=== PATIENT | male | born 1955 | race Two or more races ===

== ENCOUNTER → 2020-04-29 | Outpatient (CLI) | payer MEDICAID, OTHER ==
[~2020-04-29] MED LIST: CYAN-27 PO; Diabetic Med PO; GABA300C PO; HYDR-3240 PO; LISI2.5T PO
[2020-04-29 14:18] LABS: BASOPHILS # (AUTO) 0.06 x10^3/uL (0-0.1); BASOPHILS % (AUTO) 1 % (0-1); EOSINOPHILS # (AUTO) 0.42 x10^3/uL (0-0.4); EOSINOPHILS % (AUTO) 5 % (1-7); LYMPHOCYTES # (AUTO) 1.72 x10^3/uL (1-3.4); LYMPHOCYTES % (AUTO) 19 % (22-44); MD NO; MEAN CORPUSCULAR HEMOGLOBIN 33.5 pg (27.5-34.5); MEAN CORPUSCULAR HGB CONC 34.1 g/dL (33.2-36.2); MEAN CORPUSCULAR VOLUME 98.4 fL (81-97); MEAN PLATELET VOLUME 7.9 fL (7.4-10.4); MONOCYTES % (AUTO) 7 % (2-9); NEUTROPHILS # (AUTO) 6.45 x10^3/uL (1.8-6.8); NEUTROPHILS % (AUTO) 70 % (42-75); PLATELET COUNT 279 x10^3/uL (130-400); RED BLOOD COUNT 4.36 x10^6/uL (4.38-5.82); RED CELL DISTRIBUTION WIDTH 13.7 % (9.4-14.8)
[2020-04-29 14:25] LABS: INTERNATIONAL NORMALIZED RATIO 1.01 (0.93-1.1); PROTHROMBIN TIME 10.7 Seconds (9.6-11.5)
[2020-04-29 14:27] LABS: ALANINE AMINOTRANSFERASE 39 U/L (12-78); ALBUMIN 3.7 g/dL (3.4-5.0); ANION GAP 5 mmol/L (5-15); CALCIUM 9.4 mg/dL (8.5-10.1); CHLORIDE 105 mmol/L (98-107); CREATININE 1.31 mg/dL (0.7-1.3)
[2020-04-29 14:30] LABS: ALKALINE PHOSPHATASE 110 U/L (45-117); BILIRUBIN,TOTAL 0.8 mg/dL (0.2-1.0); TOTAL PROTEIN 7.6 g/dL (6.4-8.2)
== END | disposition home or self-care (01) ==
LOC: STAR 13:15
PROVIDERS: ATTEND Neurological Surgery
DX: Z01.818 Encounter for other preprocedural examination (principal); M48.061 Spinal stenosis, lumbar region without neurogenic claudication; M54.16 Radiculopathy, lumbar region; R94.31 Abnormal electrocardiogram [ECG] [EKG]
CPT/HCPCS: 36415; 80053; 85025; 85610; 85730; 93005

== ENCOUNTER 2020-05-07 05:28 | Observation (INO) | payer OTHER ==
[~2020-05-07] VITALS: Ht 165.1 cm; Wt 97.1 kg
[2020-05-07] MEDS ORDERED: BUPIVACAINE/PF-EPI 0.5% 1:200K ONE (06:28)
[2020-05-07] MEDS ORDERED: THROMBIN 5,000 UNIT VIAL TP ONE (06:28)
[2020-05-07] MEDS ORDERED: BACITRACIN 50,000 UNIT ONE (06:29)
[2020-05-07] MEDS ORDERED: CHLORHEXIDINE 15 ML UDC MM ONE (06:30)
[2020-05-07] MEDS ORDERED: METF500T17 PO (06:31)
[2020-05-07] MEDS ORDERED: GABA300C PO (06:31)
[2020-05-07] MEDS ORDERED: ATOR20TA37 PO (06:31)
[2020-05-07] MEDS ORDERED: LOSA25TA25 PO (06:31)
[2020-05-07] MEDS ORDERED: LACTATED RINGERS 1,000 ML IV SCH (06:32)
[2020-05-07] MEDS ORDERED: GABAPENTIN 300 MG CAPSULE PO STA (06:45)
[2020-05-07] MEDS ORDERED: GABAPENTIN 300 MG CAPSULE ONE (06:50)
[2020-05-07] MEDS ORDERED: ACETAMINOPHEN 500 MG TABLET ONE (06:50)
[2020-05-07] MEDS ORDERED: PHENYLEPHRINE 10 MG/ML ONE (06:52)
[2020-05-07] MEDS ORDERED: FENTANYL PF 250 MCG/5ML ONE ×2 (06:56→08:40)
[2020-05-07] MEDS ORDERED: MIDAZOLAM 1 MG/ML, 2ML ONE (06:56)
[2020-05-07] MEDS ORDERED: GLYCOPYRROLATE 0.2MG/1ML, 5ML ONE (06:57)
[2020-05-07] MEDS ORDERED: PROPOFOL 10 MG/ML, 20ML ONE (06:57)
[2020-05-07] MEDS ORDERED: NEOSTIGMINE 1 MG/ML, 10ML ONE (06:57)
[2020-05-07] MEDS ORDERED: ROCURONIUM 10MG/ML,5ML ONE (06:57)
[2020-05-07] MEDS ORDERED: CEFAZOLIN 1,000 MG ONE (06:57)
[2020-05-07] MEDS ORDERED: ACETAMINOPHEN 500 MG TABLET PO ONE (07:00)
[2020-05-07] MEDS ORDERED: DEXAMETHASONE 4 MG/ML, 1ML ONE ×2 (07:17)
[2020-05-07] MEDS ORDERED: ONDANSETRON 2MG/ML, 2ML ONE ×2 (07:17)
[2020-05-07] MEDS ORDERED: HYDROmorphone 1 MG/ML, 1ML INJ IVPush PRN (07:30)
[2020-05-07] MEDS ORDERED: MEPERIDINE/PF 25MG/0.5ML IVPush PRN (07:30)
[2020-05-07] MEDS ORDERED: morphine SULFATE 10 MG/ML, 1ML IVPush PRN (07:30)
[2020-05-07] MEDS ORDERED: LABETALOL 5MG/ML, 20ML IV PRN ×2 (07:30→12:30)
[2020-05-07] MEDS ORDERED: OXYcodone 5 MG/5 ML ORAL.SOL UDC PO PRN (07:30)
[2020-05-07] MEDS ORDERED: hydrALAzine 20 MG/ML, 1ML IV PRN (07:30)
[2020-05-07] MEDS ORDERED: ONDANSETRON 2MG/ML, 2ML IVPush PRN (07:30)
[2020-05-07] MEDS ORDERED: OXYcodone 5 MG/5 ML ORAL.SOL UDC ONE (10:02)
[2020-05-07] MEDS ORDERED: FENTANYL PF 100 MCG/2ML ONE (10:02)
[2020-05-07] MEDS: FENTANYL PF 100 MCG/2ML IV PRN ×2 (10:04→10:22)
[2020-05-07] MEDS ORDERED: CYCLOBENZAPRINE 10 MG TABLET ONE (10:11)
[2020-05-07] MEDS ORDERED: CYCLOBENZAPRINE 10 MG TABLET PO PRN ×2 (10:30→12:30)
[2020-05-07] MEDS ORDERED: CEFAZOLIN PMX 1GM/50ML 50 ML IVPB SCH (12:30)
[2020-05-07] MEDS ORDERED: DIPHENHYDRAMINE 50 MG/ML, 1ML IM PRN (12:30)
[2020-05-07] MEDS ORDERED: BISACODYL 10 MG SUPP PR PRN (12:30)
[2020-05-07] MEDS ORDERED: ONDANSETRON 2MG/ML, 2ML IV PRN (12:30)
[2020-05-07] MEDS ORDERED: DIPHENHYDRAMINE 25 MG CAPSULE PO PRN (12:30)
[2020-05-07] MEDS ORDERED: HYDROcodone/APAP 5/325 TABLET PO PRN (12:30)
[2020-05-07] MEDS ORDERED: MAGNESIUM HYDROXIDE 8%, 30ML UDC PO PRN (12:30)
[2020-05-07] MEDS ORDERED: morphine SULFATE 10 MG/ML, 1ML IV PRN (12:30)
[2020-05-07 14:36] VITALS: BP 120/68
[2020-05-07] MEDS: GABAPENTIN 300 MG CAPSULE PO SCH ×2 (15:40→21:31)
[2020-05-07] MEDS: CEFAZOLIN PMX 1GM/50ML 50 ML IVPB SCH ×2 (15:41→23:43)
[2020-05-07] MEDS: OXYcodone IR 5MG TABLET PO PRN ×3 (15:41→23:47)
[2020-05-07] MEDS: NS + 20MEQ KCL 1,000 ML IV SCH (15:41)
[2020-05-07 18:26] VITALS: BP 127/69
[2020-05-07] MEDS: ATORVASTATIN 20 MG TABLET PO SCH (21:31)
[2020-05-08] VITALS: BP 128/62
[2020-05-08] MEDS: NS + 20MEQ KCL 1,000 ML IV SCH ×3 (01:30→21:30)
[2020-05-08 03:34] VITALS: BP 118/61
[2020-05-08] MEDS: OXYcodone IR 5MG TABLET PO PRN ×5 (03:49→20:27)
[2020-05-08 05:56] LABS: BASOPHILS # (AUTO) 0.01 x10^3/uL (0-0.1); BASOPHILS % (AUTO) 0 % (0-1); EOSINOPHILS % (AUTO) 1 % (1-7); LYMPHOCYTES # (AUTO) 1.19 x10^3/uL (1-3.4); LYMPHOCYTES % (AUTO) 9 % (22-44); MD NO; MEAN CORPUSCULAR HEMOGLOBIN 33.4 pg (27.5-34.5); MEAN CORPUSCULAR HGB CONC 33.8 g/dL (33.2-36.2); MEAN PLATELET VOLUME 7.9 fL (7.4-10.4); MONOCYTES # (AUTO) 0.68 x10^3/uL (0.2-0.8); MONOCYTES % (AUTO) 5 % (2-9); NEUTROPHILS # (AUTO) 11.67 x10^3/uL (1.8-6.8); NEUTROPHILS % (AUTO) 86 % (42-75); PLATELET COUNT 263 x10^3/uL (130-400)
[2020-05-08 06:08] LABS: ANION GAP 8 mmol/L (5-15); CHLORIDE 102 mmol/L (98-107); CREATININE 1.22 mg/dL (0.7-1.3)
[2020-05-08 07:31] VITALS: BP 125/76
[2020-05-08] MEDS: GABAPENTIN 300 MG CAPSULE PO SCH ×3 (08:22→20:27)
[2020-05-08] MEDS: LOSARTAN 25MG TABLET PO SCH (08:24)
[2020-05-08] MEDS: CYANOCOBALAMIN 1,000 MCG TABLET PO SCH (08:24)
[2020-05-08] MEDS: metFORMIN XR 500 MG TAB.ER.24H PO SCH (08:25)
[2020-05-08] MEDS: SENNA/DOCUSATE TABLET PO SCH (08:26)
[2020-05-08] MEDS ORDERED: CYCL5TAB PO (10:20)
[2020-05-08] MEDS ORDERED: OXYC5CAP2 PO (10:22)
[2020-05-08 13:51] VITALS: BP 157/80
[2020-05-08 18:21] VITALS: BP 164/82
[2020-05-08] MEDS: ATORVASTATIN 20 MG TABLET PO SCH (20:27)
[2020-05-09 00:11] VITALS: BP 143/75
[2020-05-09] MEDS: OXYcodone IR 5MG TABLET PO PRN ×3 (01:10→08:22)
[2020-05-09 07:16] VITALS: BP 114/68
[2020-05-09] MEDS: metFORMIN XR 500 MG TAB.ER.24H PO SCH (08:14)
[2020-05-09] MEDS: GABAPENTIN 300 MG CAPSULE PO SCH (08:14)
[2020-05-09] MEDS: CYANOCOBALAMIN 1,000 MCG TABLET PO SCH (08:15)
[2020-05-09] MEDS: LOSARTAN 25MG TABLET PO SCH (08:15)
[2020-05-09] MEDS: NS + 20MEQ KCL 1,000 ML IV SCH (08:15)
[2020-05-09] MEDS: SENNA/DOCUSATE TABLET PO SCH (08:15)
== END 2020-05-09 11:25 | disposition home or self-care (01) ==
LOC: OUT 05:28 → 4NE 11:32 → OUT 12:00 → 4NE 12:01 → DCLOUNGE 05-09 11:19
PROVIDERS: ADMIT Neurological Surgery; ATTEND Neurological Surgery
DX: Z03.818 Encounter for observation for suspected exposure to other biological agents ruled out (principal); M48.061 Spinal stenosis, lumbar region without neurogenic claudication; E88.2 Lipomatosis, not elsewhere classified; I10 Essential (primary) hypertension; E11.9 Type 2 diabetes mellitus without complications; G47.30 Sleep apnea, unspecified; K21.9 Gastro-esophageal reflux disease without esophagitis; M54.16 Radiculopathy, lumbar region; E78.5 Hyperlipidemia, unspecified; J43.9 Emphysema, unspecified; G97.41 Accidental puncture or laceration of dura during a procedure; Y83.8 Other surgical procedures as the cause of abnormal reaction of the patient, or of later complication, without mention of misadventure at the time of the procedure; Z88.0 Allergy status to penicillin; Z87.891 Personal history of nicotine dependence
CPT/HCPCS: 36415; 63047; 63048; 72100; 80048; 82962; 85025; 87635; 96365; 96366; 97162; 97165; C1781; G0378; J0690; J1100; J2250; J2370; J2704; J2710; J3010; J3480; J7120; J2405